=== PATIENT | female | born 1975 | race Caucasian/White ===

== ENCOUNTER → 2019-04-23 | Outpatient (CLI) | payer MEDICARE, MEDICAID ==
[~2019-04-23] MED LIST: ALPR.25T PO; ALPR0.5T7 PO; CHOL500044 PO; CIPR500T4 PO; CYAN500T62 PO; CYCL10TA9 PO; DIAZ5TAB3 PO; ETOD400T PO; HYDR-2890 PO; HYDR-34 PO; HYDR-3583 PO; HYDR-3820 PO; METH750T3 PO; METR-145 PO; NAPR-243 PO; OXYC-272 PO; PRAV10TA23 PO; SULF1TAB35 PO
--- NOTE | 2019-04-23 15:10 | Diagnostic Imaging Report ---
PROCEDURE: MR imaging cervical spine without contrast. TECHNIQUE: Multiplanar, multisequence MR imaging of the cervical spine was performed without contrast. INDICATION: Increasing cervical spine pain, radiculopathy. History of prior cervical spine fusion in 2013. CORRELATION STUDY: 10/07/2014. FINDINGS: Postoperative changes of anterior cervical decompression and fusion at C6-C7 level with some artifact present. The alignment appears to be an anatomic at the areas fused. Nonfused segments demonstrate straightening but otherwise unremarkable. Overall vertebral body heights are maintained and unremarkable. The cervicocranial junction and odontoid are unremarkable. The cervical spinal cord is unremarkable. C2-C3 level is unremarkable. C3-C4 level with very mild broad-based disc bulge without significant stenosis. AP dimension of the spinal canal of approximately 9 mm. C4-C5 and C5-C6 levels appearing unremarkable. C6-C7 level, level fused, demonstrates what appears to be a rather prominent asymmetric disc and/or osteophyte formation with resultant left foraminal narrowing. Right foramen appears less severely narrowed. Slight flattening of the ventral thecal sac without significant canal stenosis. C7-T1 level is unremarkable. Examination is compromised by patient motion artifact. IMPRESSION: 1. Postoperative changes of anterior cervical decompression and fusion at C6-C7 level. There does appear to be prominent disc and/or osteophyte formation resulting in bilateral foraminal narrowing. 2. Otherwise, no findings to suggest significant canal or foraminal stenosis. Dictated by: Dictated on workstation # [id number]
--- NOTE | 2019-04-23 15:35 | Diagnostic Imaging Report ---
PROCEDURE: MRI lumbar spine. TECHNIQUE: Multiplanar, multisequence MRI of the lumbar spine was performed without contrast. INDICATION: Worsened low back pain. COMPARISON: Study compared with exam of 05/30/2015. FINDINGS: Lumbar statures are stable and unremarkable. There are degenerative changes, greatest at the L3-L4 level where there is disc space narrowing, disc desiccation, disc bulge, and endplate osteophytes. The osteophyte disc material results in a moderate degree of biforaminal stenosis, stable from prior. There is a moderate degree of right-sided foraminal stenosis at the L5-S1 level. The remaining neuroforamen are widely patent. There is no substantial canal stenosis. Marrow signal intensity is unremarkable. No acute osseous pathology. The alignment is normal. IMPRESSION: Bulging disc at L3-L4 with biforaminal stenosis and right-sided L5-S1 foraminal stenoses, unchanged. No substantial canal narrowing. Normal alignment. No acute bony pathology. No change from previous. Dictated by: Dictated on workstation # [id number]
== END ==
LOC: RAD 13:30
PROVIDERS: ATTEND Family Medicine
DX: M51.16 Intervertebral disc disorders with radiculopathy, lumbar region (principal); M48.061 Spinal stenosis, lumbar region without neurogenic claudication; M50.10 Cervical disc disorder with radiculopathy, unspecified cervical region; Z98.1 Arthrodesis status
CPT/HCPCS: 72141; 72148

== ENCOUNTER 2020-07-29 19:54 | Emergency (ER) | payer MEDICARE, MEDICAID ==
[~2020-07-29] VITALS: Ht 165 cm; Wt 93.0 kg
[~2020-07-29 19:54] MED LIST changes: +ACHYD1T PO; -CIPR500T4 PO; +CIPR500T5 PO; -CYAN500T62 PO; +CYAN500T8 PO; -HYDR-3820 PO; +METH-732 PO; -METH750T3 PO
--- NOTE | 2020-07-29 20:28 | ED Abdominal Pain ---
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 REPORTS DID HAVE NAUSEA ET VOMITING ONSET W/ PAIN. STATES HAS HAD SIMILAR SYMPTOMS OVER THE PAST X2 MOS, WAS EVALUATED AT [facility] ET TOLD ELEVATED CHOLESTEROL. NO OTHER C/O VOICED Sepsis Screen: No Definite Risk Source of Information: Patient Exam Limitations: No Limitations History of Present Illness Date Seen by Provider: Jul 29, 2020 Time Seen by Provider: 20:11 Initial Comments This is a 45-year-old female who presents to the ER with complaint of mid epigastric pain that started approximately 15-30 minutes prior to arrival. States she had just completed dinner when the pain began and was accompanied by nausea and vomiting with severe pain. She's had similar symptoms in the past with the most recent episode 3 days ago. She was evaluated at [facility] and told nothing was wrong with her, except elevated cholesterol. States she was told to go to the ER to rule out cardiac etiology if her symptoms returned. Allergies and Home Medications Allergies Coded Allergies: No Known Drug Allergies (Unverified , 10/09/15) Home Medications Alprazolam 0.5 Mg Tablet, 0.5 MG PO TID PRN for ANXIETY, (Reported) Cholecalciferol (Vitamin D3) 5,000 Unit Tablet, 5,000 UNIT PO DAILY, (Reported) Cyanocobalamin (Vitamin B-12) 500 Mcg Tablet, 500 MCG PO BID, (Reported) Etodolac 400 Mg Tablet, 400 MG PO BID PRN for PAIN, (Reported) Hydrocodone Bit/Acetaminophen 1 Each Tablet, 1 EACH PO TID PRN for PAIN Prescribed by: EDWARD BONILLA on 10/13/15 1047 Methocarbamol 750 Mg Tablet, 750 MG PO TID, (Reported) Pantoprazole Sodium 20 Mg Tablet.dr, 20 MG PO DAILY Prescribed by: FEDERICO OROZCO on 07/29/202216 Sucralfate 1 Gm Tablet, 1 GM PO AC Prescribed by: FEDERICO OROZCO on 07/29/202217 Patient Home Medication List Home Medication List Reviewed: Yes Review of Systems Review of Systems Constitutional: see HPI EENTM: No Symptoms Reported Respiratory: No Symptoms Reported Cardiovascular: See HPI Gastrointestinal: See HPI Genitourinary: No Symptoms Reported Musculoskeletal: no symptoms reported Skin: no symptoms reported Psychiatric/Neurological: No Symptoms Reported Endocrine: No Symptoms Reported Hematologic/Lymphatic: No Symptoms Reported Past Mhlulky-Lswfla-Kpeevi Hx Patient Social History Alcohol Use: Rarely Uses Smoking Status: Former Smoker Former Smoker, Quit: Mar 16, 2020 Recent Infectious Disease Expo: No Immunizations Up To Date Date of Pneumonia Vaccine: Mar 16, 2012 Date of Influenza Vaccine: Mar 16, 2012 Past Medical History Orthopedic Reproductive Disorders: No Female Reproductive Disorders: Ovarian Cyst HIV/AIDS: No Chronic Diarrhea, Hepatitis, Gall Bladder Disease Degenerate Disk Disease, Arthritis, Fibromyalgia, Chronic Back Pain Loss of Vision: Denies Hearing Impairment: Denies Anxiety Adverse Reaction/Blood Tranf: No Family Medical History No Pertinent Family Hx Physical Exam Vital Signs Vital Signs - First Documented 07/29/20 19:59 Temp 34.7 Pulse 67 Resp 18 B/P (MAP) 131/88 (102) Pulse Ox 100 O2 Delivery Room Air Capillary Refill : Less Than 3 Seconds Height/Weight/BMI Height: 5'5.00" Weight: 213lbs. 3.0oz. 96.448448kg; 34.00 BMI Method:Stated General Appearance: WD/WN HEENT: PERRL/EOMI, normal ENT inspection, TMs normal, pharynx normal Neck: full range of motion, supple, normal inspection Respiratory: chest non-tender, lungs clear, normal breath sounds, no respiratory distress, no accessory muscle use Cardiovascular: regular rate, rhythm, no murmur Gastrointestinal: normal bowel sounds, soft; No distended; tenderness (epigastric ) Extremities: normal range of motion, non-tender, normal inspection Back: normal inspection, no CVA tenderness, no vertebral tenderness Neurologic/Psychiatric: no motor/sensory deficits, alert, normal mood/affect, oriented x 3 Skin: normal color, warm/dry Progress/Results/Core Measures Results/Orders Lab Results Laboratory Tests Test 07/29/20 20:16 07/29/20 20:31 Range/Units White Blood Count 6.7 4.3-11.0 10^3/uL Red Blood Count 3.93 3.80-5.11 10^6/uL Hemoglobin 12.8 11.5-16.0 g/dL Hematocrit 39 35-52 % Mean Corpuscular Volume 100 H 80-99 fL Mean Corpuscular Hemoglobin 33 25-34 pg Mean Corpuscular Hemoglobin Concent 33 32-36 g/dL Red Cell Distribution Width 12.8 10.0-14.5 % Platelet Count 234 130-400 10^3/uL Mean Platelet Volume 10.0 9.0-12.2 fL Immature Granulocyte % (Auto) 0 % Neutrophils (%) (Auto) 54 42-75 % Lymphocytes (%) (Auto) 36 12-44 % Monocytes (%) (Auto) 7 0-12 % Eosinophils (%) (Auto) 2 0-10 % Basophils (%) (Auto) 1 0-10 % Neutrophils # (Auto) 3.7 1.8-7.8 10^3/uL Lymphocytes # (Auto) 2.4 1.0-4.0 10^3/uL Monocytes # (Auto) 0.5 0.0-1.0 10^3/uL Eosinophils # (Auto) 0.1 0.0-0.3 10^3/uL Basophils # (Auto) 0.0 0.0-0.1 10^3/uL Immature Granulocyte # (Auto) 0.0 0.0-0.1 10^3/uL Sodium Level 140 135-145 MMOL/L Potassium Level 3.9 3.6-5.0 MMOL/L Chloride Level 104 98-107 MMOL/L Carbon Dioxide Level 24 21-32 MMOL/L Anion Gap 12 5-14 MMOL/L Blood Urea Nitrogen 17 7-18 MG/DL Creatinine 1.10 0.60-1.30 MG/DL Estimat Glomerular Filtration Rate 53 BUN/Creatinine Ratio 15 Glucose Level 101 70-105 MG/DL Calcium Level 9.1 8.5-10.1 MG/DL Corrected Calcium 8.8 8.5-10.1 MG/DL Total Bilirubin 0.3 0.1-1.0 MG/DL Aspartate Amino Transf (AST/SGOT) 16 5-34 U/L Alanine Aminotransferase (ALT/SGPT) 17 0-55 U/L Alkaline Phosphatase 62 40-136 U/L Troponin I < 0.028 <0.028 NG/ML Total Protein 7.7 6.4-8.2 GM/DL Albumin 4.4 3.2-4.5 GM/DL Lipase 16 8-78 U/L Serum Test, Qualitative NEGATIVE NEGATIVE Urine Color YELLOW Urine Clarity CLEAR Urine pH 5.0 5-9 Urine Specific Waterflow >=1.030 1.016-1.022 Urine Protein NEGATIVE NEGATIVE Urine Glucose (UA) NEGATIVE NEGATIVE Urine Ketones TRACE H NEGATIVE Urine Nitrite NEGATIVE NEGATIVE Urine Bilirubin NEGATIVE NEGATIVE Urine Urobilinogen 0.2 < = 1.0 MG/DL Urine Leukocyte Esterase NEGATIVE NEGATIVE Urine RBC (Auto) NEGATIVE NEGATIVE Urine RBC NONE /HPF Urine WBC 0-2 /HPF Urine Squamous Epithelial Cells 5-10 /HPF Urine Crystals NONE /LPF Urine Bacteria TRACE /HPF Urine Casts NONE /LPF Urine Mucus MODERATE H /LPF Urine Culture Indicated NO My Orders Orders - FEDERICO OROZCO APRN Ua Culture If Indicated (07/29/20 19:59) Cbc With Automated Diff (07/29/20 20:25) Comprehensive Metabolic Panel (07/29/20 20:25) Lipase (07/29/20 20:25) Ekg Tracing (07/29/20 20:25) Hcg,Qualitative Serum (07/29/20 20:25) Troponin I (07/29/20 20:25) Ct Abdomen/Pelvis W (07/29/20 20:25) Chest 1 View, Ap/Pa Only (07/29/20 20:26) Pantoprazole Injection (Protonix Injecti (07/29/20 20:30) Ketorolac Injection (Toradol Injection) (07/29/20 20:30) Ondansetron Injection (Zofran Injectio (07/29/20 20:30) Ketorolac Injection (Toradol Injection) (07/29/20 20:30) Lidocaine 2% Viscous 15 Ml (Xylocaine Vi (07/29/20 21:45) Antacid Suspension (Mylanta Suspension (07/29/20 21:45) Fentanyl Injection (Sublimaze Injection (07/29/20 22:45) Medications Given in ED Vital Signs/I&O 07/29/20 07/29/20 19:59 23:05 Temp 34.7 Pulse 67 62 Resp 18 18 B/P (MAP) 131/88 (102) 129/72 Pulse Ox 100 98 O2 Delivery Room Air Room Air Blood Pressure Mean: 102 Progress Progress Note : Progress Note Pt. examined and in no acute distress. Based on symptoms, initiated basic labs, lipase, and cardiac markers with CXR to r/o cardiac etiology. Orders placed for Pantoprazole 40mg IVP, Toradol 15mg IVP, and Zofran 4mg IVP. Labs reviewed and are unremarkable. CT abd/pelvis shows NAD. Reported improvement of symptoms, however requested something to help with residual pain. Orders placed for GI cocktail. Reviewed discharge plan and she is agreeable with plan. Initial ECG Impression Date: Jul 29, 2020 Initial ECG Impression Time: 20:38 Initial ECG Rate: 63 Initial ECG Rhythm: Normal Sinus Initial ECG Intervals: Normal Initial ECG Impression: Normal Diagnostic Imaging Diagonstic Imaging: Xray Plain Films/CT/US/NM/MRI: chest Comments NAME: PHILIP WOODARD [facility] REC#: [id number] PT STATUS: REG ER : 1975 PHYSICIAN: FEDERICO OROZCO APRN ADMIT DATE: 07/29/20/ER Signed Date of Exam:07/29/20 CHEST 1 VIEW, AP/PA ONLY Clinical indication: Patient complains of abdominal pain, onset 15-30 minutes prior to arrival after eating. Patient did have nausea and vomiting with onset of pain. Patient has similar pain two months ago and was evaluated at outside hospital and was told the patient had elevated cholesterol. Exam: Portable chest x-ray upright view. Comparisons: None. Findings: Lungs/pleura: Lungs are clear. There is no pneumothorax. There is no pleural effusion. Mediastinum: Unremarkable. Pulmonary vasculature: Unremarkable. Heart: Unremarkable. Bones/extrathoracic soft tissue: Unremarkable. Impression: There is no radiographic evidence of acute cardiopulmonary process. Dictated by: Dictated on workstation # [id number] Dict: 07/29/202058 Trans: 07/29/202225 [facility] [id number] Interpreted by: KELVIN RUBY MD Electronically signed by: KELVIN RUBY MD 07/29/202225 Reviewed: Reviewed by Me Diagonstic Imaging: CT Plain Films/CT/US/NM/MRI: abdomen, pelvis Comments NAME: PHILIP WOODARD [facility] REC#: [id number] PT STATUS: REG ER : 1975 PHYSICIAN: FEDERICO OROZCO APRN ADMIT DATE: 07/29/20/ER Signed Date of Exam:07/29/20 CT ABDOMEN/PELVIS W CLINICAL INDICATION: Patient with midepigastric pain with onset of 15 to 30 minutes prior to arrival after eating. Patient has surgical history of gallbladder removal and ectopic . EXAM: Axial CT scan of the abdomen and pelvis performed with 100 mL of Omnipaque 350 IV contrast. Sagittal and coronal reformatted images are created. Auto Exposure Controls were utilized during the CT exam to meet ALARA standards for radiation dose reduction. COMPARISON: CT scan of the abdomen and pelvis with contrast dated 03/08/2016. FINDINGS: There is minimal atelectasis involving the posterior left lung base. Otherwise, lungs are clear. There are small spurs involving the lower lumbar spine. There is sclerosis of the sacroiliac joints, bilaterally. There are small spurs involving both hips. Gallbladder is surgically resected as noted on the prior study as well. The liver, spleen and pancreas are unremarkable. Stable 2.2 cm x 1.6 cm low-density lesion involving the right adrenal gland with Hounsfield units of 13. This is suspected to represent adenoma. Otherwise adrenal glands are unremarkable. Both kidneys are unremarkable with no hydronephrosis, mass or stone. The bladder is predominantly decompressed with no gross abnormality visualized. The uterus and bilateral adnexal structures are unremarkable. There is no intra-abdominal free air or free fluid. There is no acute abdominal or pelvic lymphadenopathy. The appendix is unremarkable. There is no intestinal obstruction. Stomach has similar appearance to the prior study. There is thickening of the antrum which may be related to contraction. Extra-abdominal and extra-pelvis soft tissue structures are unremarkable. IMPRESSION: 1: There is no CT evidence of acute abdominal or pelvic process. 2: Stable right adrenal gland low-density lesion suspected to represent a benign adrenal adenoma. 3: Cholecystectomy changes again seen. Dictated by: Dictated on workstation # [id number] Dict: 07/29/[id number] Trans: 07/29/202231 [facility] [id number] Interpreted by: KELVIN RUBY MD Electronically signed by: KELVIN RUBY MD 07/29/202231 Departure Impression Primary Impression: Gastritis Disposition: 01 HOME, SELF-CARE Condition: Improved Departure-Patient Inst. Decision time for Depature: 22:12 Referrals: NIC DIAZ MD (PCP/Family) Primary Care Physician Patient Instructions: Gastritis Add. Discharge Instructions: Plan: 1. Take Carafate one hour before meals and medications. Take on empty stomach. 2. Take Protonix 20mg daily as directed before your heaviest meal. 3. Follow up with your primary care provider as you may need to be referred for EGD for persistent symptoms. 4. Avoid spicy, acidic foods. Avoid foods that trigger symptoms. 5. Return for any new, worsening, or concerning symptoms. All discharge instructions reviewed with patient and/or family. Voiced understanding. Scripts Sucralfate (Sucralfate) 1 Gm Tablet 1 GM PO AC for 10 Days, #30 TAB 0 Refills Prov: FEDERICO OROZCO RENEWALS REPRESENTATIVE 07/29/20 Pantoprazole Sodium (Pantoprazole Sodium) 20 Mg Tablet.dr 20 MG PO DAILY for 30 Days, #30 TAB 0 Refills Prov: FEDERICO OROZCO RENEWALS REPRESENTATIVE 07/29/20 FEDERICO OROZCO RENEWALS REPRESENTATIVE Jul 29, 2020 20:28
[2020-07-29] MEDS ORDERED: PANTOPRAZOLE 40 MG (PROTONIX) VIAL IV ONE (20:30)
[2020-07-29] MEDS ORDERED: KETOROLAC 30 MG/ML VIAL ONE (20:30)
[2020-07-29] MEDS ORDERED: KETOROLAC 15 MG/ML VIAL IVP ONE (20:30)
[2020-07-29] MEDS ORDERED: ONDANSETRON 4 MG/2 ML (SDV) Z0FRAN IVP ONE (20:30)
[2020-07-29 20:36] LABS: BASOPHILS % (AUTO) 1 % (0-10); EOSINOPHILS # (AUTO) 0.1 10^3/uL (0.0-0.3); EOSINOPHILS % (AUTO) 2 % (0-10); HEMATOCRIT 39 % (35-52); HEMOGLOBIN 12.8 g/dL (11.5-16.0); LYMPHOCYTES # (AUTO) 2.4 10^3/uL (1.0-4.0); LYMPHOCYTES % (AUTO) 36 % (12-44); MEAN CORPUSCULAR HEMOGLOBIN 33 pg (25-34); MEAN CORPUSCULAR HGB CONC 33 g/dL (32-36); MEAN CORPUSCULAR VOLUME 100 fL (80-99); MONOCYTES # (AUTO) 0.5 10^3/uL (0.0-1.0); MONOCYTES % (AUTO) 7 % (0-12); NEUTROPHILS # (AUTO) 3.7 10^3/uL (1.8-7.8); NEUTROPHILS % (AUTO) 54 % (42-75); PLATELET COUNT 234 10^3/uL (130-400); WHITE BLOOD COUNT 6.7 10^3/uL (4.3-11.0)
[2020-07-29 20:38] LABS: BILIRUBIN,URINE NEGATIVE (NEGATIVE); CLARITY,URINE CLEAR; COLOR,URINE YELLOW; GLUCOSE, URINE (UA) NEGATIVE (NEGATIVE); KETONES,URINE TRACE (NEGATIVE); LEUKOCYTE ESTERASE ,URINE NEGATIVE (NEGATIVE); NITRITE,URINE NEGATIVE (NEGATIVE); PROTEIN,URINE NEGATIVE (NEGATIVE)
[2020-07-29 20:44] LABS: ALBUMIN 4.4 GM/DL (3.2-4.5); CHLORIDE 104 MMOL/L (98-107); POTASSIUM 3.9 MMOL/L (3.6-5.0); SODIUM 140 MMOL/L (135-145)
[2020-07-29 20:45] LABS: CALCIUM 9.1 MG/DL (8.5-10.1)
[2020-07-29 20:46] LABS: GLUCOSE 101 MG/DL (70-105); TOTAL PROTEIN 7.7 GM/DL (6.4-8.2)
[2020-07-29 20:47] LABS: CARBON DIOXIDE 24 MMOL/L (21-32)
[2020-07-29 20:48] LABS: BILIRUBIN,TOTAL 0.3 MG/DL (0.1-1.0)
[2020-07-29 20:49] LABS: BACTERIA,URINE TRACE /HPF; WBC,URINE 0-2 /HPF
[2020-07-29 20:50] LABS: ALKALINE PHOSPHATASE 62 U/L (40-136); GFR ESTIMATED 53
[2020-07-29 20:51] LABS: BUN/CREATININE RATIO 15
[2020-07-29 20:53] LABS: ALANINE AMINOTRANSFERASE 17 U/L (0-55); LIPASE 16 U/L (8-78)
[2020-07-29] MEDS ORDERED: IOHEXOL 350 MG/ML 100 ML (OMNIPAQUE 350) VIAL IV ONE (21:00)
[2020-07-29] MEDS ORDERED: CATHETER FLUSH 10 ML SYR IV PRN (21:00)
[2020-07-29] MEDS ORDERED: NS 100 ML (IVPB) BAG IV ONE (21:00)
[2020-07-29] MEDS ORDERED: HOLD METFORMIN - RECEIVED CONTRAST 20 ML VIAL IV SCH (21:00)
--- NOTE | 2020-07-29 21:10 | Diagnostic Imaging Report ---
Clinical indication: Patient complains of abdominal pain, onset 15-30 minutes prior to arrival after eating. Patient did have nausea and vomiting with onset of pain. Patient has similar pain two months ago and was evaluated at outside hospital and was told the patient had elevated cholesterol. Exam: Portable chest x-ray upright view. Comparisons: None. Findings: Lungs/pleura: Lungs are clear. There is no pneumothorax. There is no pleural effusion. Mediastinum: Unremarkable. Pulmonary vasculature: Unremarkable. Heart: Unremarkable. Bones/extrathoracic soft tissue: Unremarkable. Impression: There is no radiographic evidence of acute cardiopulmonary process. Dictated by: Dictated on workstation # [id number]
[2020-07-29] MEDS ORDERED: LIDOCAINE 2% VISCOUS 15 ML UDC PO ONE (21:45)
[2020-07-29] MEDS ORDERED: ANTACID SUSP 30 ML UDC (MYLANTA) PO ONE (21:45)
[2020-07-29] MEDS ORDERED: PANT20TA18 PO (22:17)
[2020-07-29] MEDS ORDERED: SUCR1TAB PO (22:18)
--- NOTE | 2020-07-29 22:29 | Diagnostic Imaging Report ---
CLINICAL INDICATION: Patient with midepigastric pain with onset of 15 to 30 minutes prior to arrival after eating. Patient has surgical history of gallbladder removal and ectopic . EXAM: Axial CT scan of the abdomen and pelvis performed with 100 mL of Omnipaque 350 IV contrast. Sagittal and coronal reformatted images are created. Auto Exposure Controls were utilized during the CT exam to meet ALARA standards for radiation dose reduction. COMPARISON: CT scan of the abdomen and pelvis with contrast dated 03/08/2016. FINDINGS: There is minimal atelectasis involving the posterior left lung base. Otherwise, lungs are clear. There are small spurs involving the lower lumbar spine. There is sclerosis of the sacroiliac joints, bilaterally. There are small spurs involving both hips. Gallbladder is surgically resected as noted on the prior study as well. The liver, spleen and pancreas are unremarkable. Stable 2.2 cm x 1.6 cm low-density lesion involving the right adrenal gland with Hounsfield units of 13. This is suspected to represent adenoma. Otherwise adrenal glands are unremarkable. Both kidneys are unremarkable with no hydronephrosis, mass or stone. The bladder is predominantly decompressed with no gross abnormality visualized. The uterus and bilateral adnexal structures are unremarkable. There is no intra-abdominal free air or free fluid. There is no acute abdominal or pelvic lymphadenopathy. The appendix is unremarkable. There is no intestinal obstruction. Stomach has similar appearance to the prior study. There is thickening of the antrum which may be related to contraction. Extra-abdominal and extra-pelvis soft tissue structures are unremarkable. IMPRESSION: 1: There is no CT evidence of acute abdominal or pelvic process. 2: Stable right adrenal gland low-density lesion suspected to represent a benign adrenal adenoma. 3: Cholecystectomy changes again seen. Dictated by: Dictated on workstation # [id number]
[2020-07-29] MEDS ORDERED: fentaNYL INJECTION 100 MCG/2 ML AMP IVP ONE (22:45)
[2020-07-29 23:05] VITALS: BP 129/72
== END 2020-07-29 23:05 | disposition home or self-care (01) ==
LOC: EDUNIT# 19:54 → ER 19:56
DX: K29.70 Gastritis, unspecified, without bleeding (principal); F41.9 Anxiety disorder, unspecified; G89.29 Other chronic pain; M54.9 Dorsalgia, unspecified; Z87.891 Personal history of nicotine dependence; Z79.891 Long term (current) use of opiate analgesic
CPT/HCPCS: 36415; 71045; 74177; 80053; 81000; 83690; 84484; 84703; 85025; 93005; 96374; 96375

== ENCOUNTER 2020-08-25 05:28 | Outpatient (RCR) | payer MEDICARE, MEDICAID ==
[~2020-08-25] VITALS: Ht 165.1 cm; Wt 90.8 kg
[~2020-08-25 05:28] MED LIST changes: +AMLO-251 PO; +ATOR40TA70 PO; +CHOL500049 PO; +PANT20TA18 PO; +SUCR1TAB PO; +[UNRECOGNIZED DRUG - CODE] PO
[2020-08-29] MEDS ORDERED: PANT20TA18 PO (13:26)
[2020-08-29] MEDS ORDERED: PANT40TA2 PO (13:27)
== END 2020-08-25 09:34 | disposition home or self-care (01) ==
LOC: PREOP 05:28
PROVIDERS: ATTEND Surgery
DX: Z01.812 Encounter for preprocedural laboratory examination (principal); R10.13 Epigastric pain; R11.2 Nausea with vomiting, unspecified; Z20.822 Contact with and (suspected) exposure to COVID-19
CPT/HCPCS: 87635

== ENCOUNTER 2020-08-29 11:11 | Day surgery (SDC) | payer MEDICARE, MEDICAID ==
[~2020-08-29] VITALS: Ht 165 cm; Wt 91.0 kg
[2020-08-29] VITALS (7 sets, daily range): BP systolic 82–116; BP diastolic 46–80
[~2020-08-29 11:11] MED LIST changes: +LACTATED RINGERS 1,000 ML IV ONE
[2020-08-29] MEDS ORDERED: LACTATED RINGERS 1,000 ML IV STA (11:12)
[2020-08-29] MEDS ORDERED: HURRICAINE EXT TUBE (BENZOCAINE) XX PRN (11:15)
--- NOTE | 2020-08-29 12:00 | Progress Note-Pre Operative ---
Pre-Operative Progress Note H&P Reviewed The H&P was reviewed, patient examined and no changes noted. Date Seen by Provider: Aug 29, 2020 Time Seen by Provider: 12:00 Date H&P Reviewed: Aug 29, 2020 Time H&P Reviewed: 12:00 Pre-Operative Diagnosis: epigastric abdominal pain, n/v EDWARD BONILLA DO Aug 29, 2020 12:00
[2020-08-29] MEDS ORDERED: PROPOFOL INJECTION 50 ML IV ONE (12:11)
[2020-08-29] MEDS ORDERED: MIDAZOLAM 2 MG/2 ML (VERSED) VIAL ONE (12:11)
[2020-08-29] MEDS ORDERED: HURRICAINE EXT TUBE (BENZOCAINE) ONE (13:03)
--- NOTE | 2020-08-29 13:23 | Anesthesia-General Post-Op ---
MAC Patient Condition Mental Status/LOC: Same as Preop Cardiovascular: Satisfactory Nausea/Vomiting: Absent Respiratory: Satisfactory Pain: Controlled Complications: Absent Post Op Complications Complications None Follow Up Care/Instructions Patient Instructions None needed. Anesthesiology Discharge Order Discharge Order Patient is doing well, no complaints, stable vital signs, no apparent adverse anesthesia problems. No complications reported per nursing. KALIN LAURENT CRNA Aug 29, 2020 13:23
--- NOTE | 2020-08-29 13:25 | Progress Note-Post Operative ---
Post-Operative Progess Note Surgeon (s)/Lasting Room Supervisor (s) Surgeon EDWARD BONILLA DO Lasting Room Supervisor: na Pre-Operative Diagnosis epigastric abdominal pain, n/v Post-Operative Diagnosis slight gastritis Procedure & Operative Findings Date of Procedure 08/29/20 Procedure Performed/Findings EGD c biopsies Biopsy of antrum x 1 Biopsy of stomach antrum x 1 Biopsy of GE junction x 1 Anesthesia Type per master hearth technician Estimated Blood Loss Estimated blood loss (mL): scant Specimens/Packing Specimens Removed antrum, body, ge EDWARD BONILLA DO Aug 29, 2020 13:25
[2020-08-29] MEDS ORDERED: PANT20TA18 PO (13:26)
[2020-08-29] MEDS ORDERED: PANT40TA2 PO (13:27)
--- NOTE | 2020-08-29 13:28 | Discharge Inst-Simple/Standard ---
Discharge Inst-Standard Discharge Medications New, Converted or Re-Newed RX: RX on Chart Patient Instructions/Follow Up Plan of Care/Instructions/FU: 2-3 weeks Willie Activity as Tolerated: Yes Discharge Diet: Regular Diet EDWARD BONILLA DO Aug 29, 2020 13:28
--- NOTE | 2020-08-29 14:14 | OPERATIVE REPORT ---
DATE OF SERVICE: 08/29/2020 PREOPERATIVE DIAGNOSES: Epigastric abdominal pain, nausea, vomiting. POSTOPERATIVE DIAGNOSIS: Slight gastritis. PROCEDURE: EGD with biopsies. SURGEON: Edward Tapia DO ANESTHESIA: Per MATERIAL STRESS TESTER. ESTIMATED BLOOD LOSS: Scant. COMPLICATIONS: None. SPECIMENS: Antrum, body, GE junction. INDICATIONS: The patient is a 45-year-old female with nausea, vomiting, epigastric abdominal pain. She understands risks and benefits of procedure and wished to proceed with procedure. Consent was signed in the chart. DESCRIPTION OF PROCEDURE: The patient was taken to the endoscopy suite, placed in left lateral recumbent position. Timeout was performed. Scope was inserted in mouth, down the esophagus, stomach and into the duodenum without difficulty. No polyps, masses or ulcerations within the duodenum. Scope was slowly retracted back into the stomach where it was further insufflated. Slight erythematous changes throughout the stomach consistent with some slight gastritis. Biopsy of the antrum and body were obtained. Scope was retroflexed noting no other pathology. Scope was returned to its normal position, slowly withdrawn to distal esophagus. Biopsy of the GE junction was obtained. No polyps, masses or ulcerations. Scope was slowly retracted back until completely removed. The patient tolerated procedure well without any complications. She was taken to recovery room in stable condition. RECOMMENDATIONS: Protonix switched from 20 mg to 40 mg daily. We will continue on Carafate. We will await biopsy results for further recommendations. Job ID: [id number] DocumentID: [id number] Dictated Date: 08/29/2020 13:30:14 Knowledge Management Advisor Date: 08/29/2020 14:13:42 Dictated By: EDWARD TAPIA DO
== END 2020-08-29 14:30 | disposition home or self-care (01) ==
LOC: ENDO 11:11
PROVIDERS: ATTEND Surgery
DX: K29.70 Gastritis, unspecified, without bleeding (principal); K21.00 Gastro-esophageal reflux disease with esophagitis, without bleeding; I10 Essential (primary) hypertension; M19.90 Unspecified osteoarthritis, unspecified site; M79.7 Fibromyalgia; F41.9 Anxiety disorder, unspecified; Z79.899 Other long term (current) drug therapy; Z87.19 Personal history of other diseases of the digestive system; Z79.891 Long term (current) use of opiate analgesic; Z20.822 Contact with and (suspected) exposure to COVID-19; Z90.49 Acquired absence of other specified parts of digestive tract
CPT/HCPCS: 88305

== ENCOUNTER → 2020-09-26 | Outpatient (CLI) | payer MEDICARE, MEDICAID ==
[~2020-09-26] MED LIST changes: -LACTATED RINGERS 1,000 ML IV ONE; +PANT40TA2 PO
--- NOTE | 2020-09-26 13:30 | Diagnostic Imaging Report ---
INDICATION: Routine screening. COMPARISON: No prior mammograms are available for comparison. TECHNIQUE: 2D and 3D bilateral screening mammography was performed with CAD. FINDINGS: Both breasts are heterogeneously dense, limiting the sensitivity of mammography. No dominant mass or malignant appearing microcalcifications are identified. The axillae are unremarkable. IMPRESSION: No mammographic features suspicious for malignancy are identified. ACR BI-RADS Category 1: Negative. Result letter will be mailed to the patient. Note: At least 10% of breast cancer is not imaged by mammography. Dictated by: Dictated on workstation # [id number]
== END ==
LOC: RAD 08:30
PROVIDERS: ATTEND Nurse Practitioner Family
DX: Z12.31 Encounter for screening mammogram for malignant neoplasm of breast (principal)
CPT/HCPCS: 77063; 77067

== ENCOUNTER → 2020-12-20 | Outpatient (CLI) | payer MEDICARE, MEDICAID ==
[~2020-12-20] MED LIST changes: -ETOD400T PO; +ETOD400T3 PO; +GADOBUTROL 10 MMOL/10 ML (GADAVIST) VIAL IV ONE
--- NOTE | 2020-12-20 15:12 | Diagnostic Imaging Report ---
PROCEDURE: MR imaging cervical spine with and without contrast. TECHNIQUE: Multiplanar and multisequence MRI of the cervical spine was performed with and without contrast. INDICATION: Spinal stenosis. Prior cervical spine surgery. Increasing neck pain. COMPARISON: MRI cervical spine without contrast 04/23/2019. FINDINGS: Normal alignment. Vertebral body heights preserved. Normal bone marrow signal without suspicious enhancement.. Again seen is anterior fusion at C6-C7. No abnormal signal or enhancement in the cervical spinal cord. The visualized paravertebral soft tissues are unremarkable. C2-C3: No spinal canal or neural foraminal narrowing. C3-C4: Facet arthropathy results in mild right neural foraminal narrowing, similar to the prior exam. Small disc protrusion results in mild spinal canal narrowing. C4-C5: No substantial spinal canal narrowing. Mild right neural foraminal narrowing. C5-C6: Broad-based disc bulge, asymmetric to the left, has progressed since the prior exam. There is moderate spinal canal stenosis with some flattening of the cervical cord. Moderate bilateral neural foraminal narrowing. C6-C7: No spinal canal narrowing. Osteophytic ridging results in moderate left and mild right neural foraminal narrowing. C7-T1: No spinal canal narrowing. Facet arthropathy results in moderate bilateral neural foraminal narrowing, similar to the prior. IMPRESSION: 1. Stable postoperative findings from anterior fusion at C6-C7. 2. There has been progression of spondylotic changes, particularly at C5-C6 where there is now moderate spinal canal stenosis with some flattening of the cervical cord. 2. Multilevel high-grade neural foraminal narrowing as above. 3. No abnormal signal or enhancement in the cervical spinal cord. Dictated by: Dictated on workstation # [id number]
--- NOTE | 2020-12-20 17:18 | Diagnostic Imaging Report ---
EXAM: MRI THORACIC SPINE W/WO CON INDICATION: Spinal canal stenosis. COMPARISON: MRI thoracic spine without contrast 05/30/2015. CT abdomen and pelvis with IV contrast 03/08/2016. FINDINGS: Stable mild S-shaped scoliosis of the thoracic spine. No anterior or retrolisthesis. No suspicious bone marrow signal or enhancement. Mild Modic type II degenerative endplate changes in the inferior endplate of T5. Benign hemangioma in the T8 vertebral body. Small disc protrusion at T7-T8 and T10-T11 results in no substantial spinal canal stenosis. No high-grade neural foraminal narrowing. No abnormal signal or enhancement in the thoracic spinal cord. T2 hyperintense mass in the right adrenal gland measuring 2.0 x 1.6 cm has grown since the prior exam when it measured 0.8 x 0.6 cm. This is not well characterized on this nondedicated exam and may demonstrate some peripheral enhancement. No definite fat signal is seen. Visualized paravertebral soft tissues are unremarkable. IMPRESSION: 1. Stable scoliosis and mild spondylotic changes result in no high-grade neural impingement. 2. No abnormal signal or enhancement in the thoracic spinal cord. 3. Well-circumscribed T2 hyperintense mass in the right adrenal gland is incompletely characterized. No definite macroscopic fat is identified on the provided sequences. This may be a benign lesion but is indeterminate. Recommend nonemergent evaluation with multiphase contrast-enhanced dedicated CT. Dictated by: Dictated on workstation # [id number]
== END ==
LOC: RAD 08:45
PROVIDERS: ATTEND Nurse Practitioner Family
DX: M47.813 Spondylosis without myelopathy or radiculopathy, cervicothoracic region (principal); M48.03 Spinal stenosis, cervicothoracic region; D49.7 Neoplasm of unspecified behavior of endocrine glands and other parts of nervous system; M41.82 Other forms of scoliosis, cervical region; E27.9 Disorder of adrenal gland, unspecified; Z98.890 Other specified postprocedural states
CPT/HCPCS: 72156; 72157

== ENCOUNTER → 2020-12-22 | Outpatient (CLI) | payer MEDICARE, MEDICAID ==
--- NOTE | 2020-12-22 21:11 | Diagnostic Imaging Report ---
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 Pain in the lower back. EXAMINATION: Lumbar spine MRI with and without contrast, 12/22/2020. COMPARISON: 07/22/2010. FINDINGS: There is grade 1 anterolisthesis of L3 on L4 with remaining alignment preserved. Vertebral body heights maintained. Tip of the conus unremarkable in appearance and location. L1-L2: There is bilateral facet and ligamentum flavum hypertrophy. No significant bulging disc material is appreciated. The central canal appears patent. There is no significant neural foraminal stenosis. L2-L3: There is bilateral facet and ligamentum flavum hypertrophy. No significant bulging disc material is seen. There is no central stenosis. Neural foramina patent. L3-L4: There is intervertebral disc space narrowing, disc desiccation and a broad-based bulging disc. Endplate changes consistent with both Modic type II and III degenerative disease. Endplate irregularity is noted anteriorly, worsened since previous examination. The broad-based bulging disc material flattens the ventral thecal sac. There is bilateral facet hypertrophy. There is no significant central stenosis. There is of moderate bilateral neural foraminal stenosis. L4-L5: There is a broad-based bulging disc with bilateral facet and ligamentum flavum hypertrophy. Findings flatten the ventral thecal sac. There is no significant central stenosis. Moderate to severe bilateral neural foraminal stenosis is noted, left worse than right. L5-S1: There is a right paracentral broad-based bulging disc with disc desiccation. Bilateral facet and ligamentum flavum hypertrophy noted. No significant central stenosis is seen but there is mild narrowing of the right lateral recess. There is moderate to severe right and moderate left neural foraminal stenosis. The postcontrast images were repeated due to artifact. Despite repeat imaging there is persistent marked artifact on the sagittal sequences making sagittal imaging nearly nondiagnostic. On axial imaging no abnormally enhancing lesion is appreciated. There is a rounded well-circumscribed lesion left paracentrally at the L4 vertebral body, stable in appearance from previous examination, most consistent with a hemangioma. The visualized intra-abdominal structures appear unremarkable. Within the left aspect of the pelvis there is a cystic lesion which measures 3.9 cm in greatest dimension and contains a peripheral smaller cystic lesion, likely ovarian in nature, dedicated sonography recommended. IMPRESSION: 1. Multilevel diffuse degenerative findings, as described above, with limited postcontrast imaging as noted. 2. Right paracentral cystic lesion likely associated with the ovary. Dedicated sonography recommended. Dictated by: Dictated on workstation # [id number]
== END ==
LOC: RAD 16:15
PROVIDERS: ATTEND Nurse Practitioner Family
DX: C72.0 Malignant neoplasm of spinal cord (principal); M51.26 Other intervertebral disc displacement, lumbar region; M51.27 Other intervertebral disc displacement, lumbosacral region; M51.36 Other intervertebral disc degeneration, lumbar region; M51.37 Other intervertebral disc degeneration, lumbosacral region; M48.061 Spinal stenosis, lumbar region without neurogenic claudication; M48.07 Spinal stenosis, lumbosacral region; M43.16 Spondylolisthesis, lumbar region; M24.28 Disorder of ligament, vertebrae; M89.38 Hypertrophy of bone, other site
CPT/HCPCS: 72158

== ENCOUNTER → 2021-01-19 | Outpatient (CLI) | payer MEDICARE, MEDICAID ==
[~2021-01-19] MED LIST changes: +CATHETER FLUSH 10 ML SYR IV PRN; -GADOBUTROL 10 MMOL/10 ML (GADAVIST) VIAL IV ONE; +HOLD METFORMIN - RECEIVED CONTRAST 20 ML VIAL IV SCH; +IOHEXOL 350 MG/ML 100 ML (OMNIPAQUE 350) VIAL IV ONE; +NS 100 ML (IVPB) BAG IV ONE
--- NOTE | 2021-01-19 17:26 | Diagnostic Imaging Report ---
PROCEDURE: CT abdomen and pelvis with contrast. TECHNIQUE: Multiple contiguous axial images were obtained through the abdomen and pelvis after administration of intravenous contrast. Auto Exposure Controls were utilized during the CT exam to meet ALARA standards for radiation dose reduction. All CT scans use one or more of the following dose optimizing techniques: automated exposure control, MA and/or KvP adjustment based on patient size and exam type or iterative reconstruction. INDICATION: Right adrenal gland mass. COMPARISON: 07/29/2020 and 03/24/2015. FINDINGS: The visualized lung bases are clear. Cholecystectomy. The liver and spleen are unremarkable. The left adrenal gland is unremarkable. 2.1 x 1.7 cm right adrenal gland hypodense nodule is again identified. This does not appear significantly changed in size when compared to prior imaging from 2014. The pancreas is unremarkable. The kidneys are unremarkable. No aneurysmal dilatation of the abdominal aorta. No evidence of acute appendicitis. The urinary bladder is predominantly decompressed, but otherwise unremarkable. Cystic structures are noted within the bilateral ovaries. Otherwise, uterus and adnexal structures appear unremarkable. Mural thickening of the descending and sigmoid colon is noted with associated mild adjacent inflammatory stranding. No bowel obstruction or pneumatosis. No significant adenopathy, free air or free fluid within the abdomen or pelvis. No acute osseous abnormality with significant focal degenerative changes at the L3/L4 level with bilateral pars interarticularis defects of L3 noted. IMPRESSION: 1. Mural thickening of the descending and sigmoid colon with adjacent inflammatory stranding is felt to relate to underlying colitis. No evidence of bowel obstruction. 2. There is a 2.1 cm hypodense right adrenal gland nodule, not significantly changed since 2014, consistent with a benign etiology such as an adenoma. 3. Bilateral ovarian cysts. 4. Significant degenerative changes at the L3/L4 level secondary to bilateral pars interarticularis defects of L3. Dictated by: Dictated on workstation # [id number]
== END ==
LOC: RAD 15:45
PROVIDERS: ATTEND Nurse Practitioner Family
DX: E27.8 Other specified disorders of adrenal gland (principal); N83.202 Unspecified ovarian cyst, left side; N83.201 Unspecified ovarian cyst, right side; M47.816 Spondylosis without myelopathy or radiculopathy, lumbar region
CPT/HCPCS: 74177

== ENCOUNTER 2021-03-02 05:30 | Outpatient (RCR) | payer MEDICARE, MEDICAID ==
[~2021-03-02] VITALS: Ht 160 cm; Wt 81.7 kg
[~2021-03-02 05:30] MED LIST changes: +ASPI-808 PO; -CATHETER FLUSH 10 ML SYR IV PRN; -HOLD METFORMIN - RECEIVED CONTRAST 20 ML VIAL IV SCH; -IOHEXOL 350 MG/ML 100 ML (OMNIPAQUE 350) VIAL IV ONE; -NS 100 ML (IVPB) BAG IV ONE; +OMEG-160 PO; +TRAM50TA3 PO
== END 2021-03-02 12:34 | disposition home or self-care (01) ==
LOC: PREOP 05:30
PROVIDERS: ATTEND Surgery
DX: Z01.812 Encounter for preprocedural laboratory examination (principal); K21.9 Gastro-esophageal reflux disease without esophagitis; K52.9 Noninfective gastroenteritis and colitis, unspecified; Z20.822 Contact with and (suspected) exposure to COVID-19
CPT/HCPCS: 87635

== ENCOUNTER 2021-03-06 07:41 | Day surgery (SDC) | payer MEDICARE, MEDICAID ==
[~2021-03-06] VITALS: Ht 165.1 cm; Wt 93.0 kg
[2021-03-06] MEDS ORDERED: LACTATED RINGERS 1,000 ML IV ONE (07:51)
[2021-03-06] MEDS ORDERED: LACTATED RINGERS 1,000 ML IV STA (07:51)
[2021-03-06 07:55] VITALS: BP 106/56
[2021-03-06] MEDS ORDERED: MIDAZOLAM 2 MG/2 ML (VERSED) VIAL ONE (08:06)
[2021-03-06] MEDS ORDERED: proPOfol 200 MG/20 ML (DIPRIVAN) VIAL IV ONE ×2 (08:06→09:40)
[2021-03-06] MEDS ORDERED: fentaNYL INJ 100 MCG/2 ML AMP ONE (08:26)
--- NOTE | 2021-03-06 08:30 | Progress Note-Pre Operative ---
Pre-Operative Progress Note H&P Reviewed The H&P was reviewed, patient examined and no changes noted. Date Seen by Provider: Mar 06, 2021 Time Seen by Provider: 08: Date H&P Reviewed: Mar 06, 2021 Time H&P Reviewed: 08:29 Pre-Operative Diagnosis: gerd, descending colitis, epigastric abd pain EDWARD BONILLA DO Mar 06, 2021 08:30
[2021-03-06] MEDS: HURRICAINE EXT TUBE (BENZOCAINE) XX PRN (09:28)
[2021-03-06 10:00] VITALS: BP 89/54
[2021-03-06] MEDS ORDERED: PANT40TA2 PO (10:02)
--- NOTE | 2021-03-06 10:02 | Progress Note-Post Operative ---
Post-Operative Progess Note Surgeon (s)/Geophysical E Logger (s) Surgeon EDWARD BONILLA DO Geophysical E Logger: na Pre-Operative Diagnosis gerd, descending colitis, epigastric abd pain Post-Operative Diagnosis slight gastritis, colon polyp Procedure & Operative Findings Date of Procedure 03/06/21 Procedure Performed/Findings egd c biopsies, colonoscopy c hot bx polypectomy Anesthesia Type per boilermaker apprentice Estimated Blood Loss Estimated blood loss (mL): none Specimens/Packing Specimens Removed antrum, ge, descending colon polyp EDWARD BONILLA DO Mar 06, 2021 10:01
--- NOTE | 2021-03-06 10:04 | Discharge Inst-Simple/Standard ---
Discharge Inst-Standard Discharge Medications New, Converted or Re-Newed RX: Transmitted to Pharmacy Patient Instructions/Follow Up Plan of Care/Instructions/FU: 2 weeks Willie Activity as Tolerated: Yes Discharge Diet: Regular Diet EDWARD BONILLA DO Mar 06, 2021 10:04
[2021-03-06 10:05] VITALS: BP 97/55
[2021-03-06 10:10] VITALS: BP 98/57
[2021-03-06 10:30] VITALS: BP 118/67
[2021-03-06 10:38] VITALS: BP 118/67
--- NOTE | 2021-03-06 13:39 | Anesthesia-General Post-Op ---
MAC Patient Condition Mental Status/LOC: Same as Preop Cardiovascular: Satisfactory Nausea/Vomiting: Absent Respiratory: Satisfactory Pain: Controlled Complications: Absent Post Op Complications Complications None Follow Up Care/Instructions Patient Instructions None needed. Anesthesiology Discharge Order Discharge Order Patient is doing well, no complaints, stable vital signs, no apparent adverse anesthesia problems. No complications reported per nursing. CURT PHILIP CRNA Mar 06, 2021 13:38
--- NOTE | 2021-03-06 14:32 | OPERATIVE REPORT ---
DATE OF SERVICE: 03/06/2021 PREOPERATIVE DIAGNOSES: Gastroesophageal reflux disease, descending colitis, and epigastric abdominal pain. POSTOPERATIVE DIAGNOSES: Slight gastritis, colon polyp of descending colon. PROCEDURES PERFORMED: EGD with biopsies, colonoscopy with hot biopsy polypectomy. SURGEON: Edward Tapia DO. ANESTHESIA: Per MAMMAL CONTROL AGENT. ESTIMATED BLOOD LOSS: None. COMPLICATIONS: None. INDICATIONS FOR PROCEDURE: The patient is a 46-year-old female with GERD and descending colitis recently and epigastric abdominal pain. She understands the risks and benefits of the procedure and wishes to proceed. Consent was signed in the chart. DESCRIPTION OF PROCEDURE: The patient was taken to the endoscopy suite and placed in a left lateral recumbent position. Timeout was performed. Scope was inserted in the mouth, down the esophagus, stomach and into the duodenum without difficulty. No polyps, masses or ulcerations within the duodenum. Scope was slowly retracted back into the stomach, where it was further insufflated. Slight gastritis appearance was present. Biopsy of the antrum was obtained. Scope was retroflexed noting no other pathology. Scope was returned to its normal position, slowly withdrawn to distal esophagus. No polyps, masses or ulcerations. Biopsy of the GE junction was obtained. Scope was slowly retracted back until completely removed. Digital rectal exam was performed. There were no palpable polyps, masses or ulcerations. Scope was inserted in the rectum and advanced all the way to the cecum with minimal difficulty. Prep was adequate. Scope was then slowly retracted back. There were no polyps, masses or ulcerations within the cecum, ascending and transverse colon. In the descending colon, a small polyp was present, which hot biopsy polypectomy was performed. Scope was then continuously retracted back. No polyps, masses or ulcerations within the remainder of the descending and sigmoid colon. Once in the rectum, scope was retroflexed noting no other pathology except for some internal hemorrhoids. Scope was then returned to its normal position, slowly withdrawn until completely removed. The patient tolerated the procedure well without any complications. She was taken to the recovery room in a stable condition. RECOMMENDATIONS: The patient was started on Protonix 40 mg daily. The patient will follow up in the office in two weeks to see how her symptoms are doing and follow up on pathology. CC: Mendy Camp - requested, unable to deliver Job ID: [id number] DocumentID: [id number] Dictated Date: 03/06/2021 10:07:00 [employer] Officer Date: 03/06/2021 14:32:06 Dictated By: EDWARD TAPIA DO
== END 2021-03-06 11:00 | disposition home or self-care (01) ==
LOC: ENDO 07:41
PROVIDERS: ATTEND Surgery
DX: K63.5 Polyp of colon (principal); K21.9 Gastro-esophageal reflux disease without esophagitis; K52.9 Noninfective gastroenteritis and colitis, unspecified; I10 Essential (primary) hypertension; F41.9 Anxiety disorder, unspecified; Z79.1 Long term (current) use of non-steroidal anti-inflammatories (NSAID); Z90.49 Acquired absence of other specified parts of digestive tract; Z79.899 Other long term (current) drug therapy; Z79.891 Long term (current) use of opiate analgesic

== ENCOUNTER 2021-03-27 13:52 | Emergency (ER) | payer MEDICARE, MEDICAID ==
[~2021-03-27] VITALS: Ht 162 cm; Wt 79.0 kg
[2021-03-27] MEDS ORDERED: METOCLOPRAMIDE INJ 10 MG/2 ML (REGLAN) IVP ONE (16:00)
[2021-03-27] MEDS ORDERED: NS IV 1000 ML 1,000 ML IV SCH (16:00)
[2021-03-27] MEDS ORDERED: diphenhydrAMINE 50 MG/ML INJ (BENADRYL) IV ONE (16:00)
--- NOTE | 2021-03-27 16:20 | ED General ---
General Chief Complaint: General Problems/Pain Stated Complaint: DIZZINESS,SIMON,R ARM WEAKNESS Nursing Triage Note: PT ARRIVES AMBULATORY TO ER WITH C/O NOT FEELING NORMAL AND DIZZINESS. PT STATES SHE ALMOST HAD A SYNCOPAL EPISODE YESTERDAY, BUT DID NOT FALL OR LOSE CONSCIOUSNESS. SHE HAD C5 FUSION ON 03/14, WAS ALSO GIVEN A STEROID THAT DAY. 1 WEEK PRIOR TO THAT SHE HAD AN EGD Source of Information: Patient, Family Exam Limitations: No Limitations History of Present Illness Date Seen by Provider: Mar 27, 2021 Time Seen by Provider: 15:30 Initial Comments Patient is a 46-year-old female who presents to the emergency room with a chief complaint of generalized malaise, fatigue, increasing pain to the right neck and right upper extremity. She is status post cervical spine surgery at [address] on March 14. Scheduled to follow-up with her Ortho surgeon tomorrow. States that her pain medication regimen and muscle relaxers are not working. States that she has had increasing feelings of weakness with severe pain in the right arm. Yesterday had a near syncopal episode when she was bending down to get something she stood up, felt very lightheaded and had to grab onto her 's wheelchair and thought she might faint. Denies fevers, chills. Has not taken the dressing off of her neck since her surgery. No nausea, vomiting, diarrhea. No urinary complaints. Describes the pain in her right arm as a burning sensation that travels from the right posterior shoulder to the fingertips. Complains of some lack of coordination with the fingers of her right hand. States that these were pre-existing problems before her surgery as well but they have seemed to intensify and worsen. She states she has had worsening symptoms of dizziness and feeling like she is going to lose her balance. Denies earache, sore throat or nasal congestion. All other review of systems reviewed and negative except as stated. Timing/Duration: 2-3 Days Severity: Moderate Associated Systoms: Headaches, Malaise, Nausea/Vomiting, Weakness (right upper extremity; pain. paresthesia) Allergies and Home Medications Allergies Coded Allergies: No Known Drug Allergies (Unverified , 10/09/15) Patient Home Medication List Home Medication List Reviewed: Yes Alprazolam (Alprazolam) 0.5 Mg Tablet, 0.5 MG PO TID PRN for ANXIETY, (Reported) Entered as Reported by: THADDEUS BELL on 10/09/15 1101 Amlodipine Besylate (Amlodipine Besylate) 10 Mg Tablet, 10 MG PO DAILY, (Reported) Entered as Reported by: OMAR GUADALUPE on 08/22/20 133 Aspirin (Aspirin) 325 Mg Tablet, 325 MG PO DAILY, (Reported) Entered as Reported by: OMAR GUADALUPE on 02/28/21 09 Atorvastatin Calcium (Atorvastatin Calcium) 40 Mg Tablet, 40 MG PO DAILY, (Reported) Entered as Reported by: OMAR GUADALUPE on 08/22/20 133 Cholecalciferol (Vitamin D3) (Vitamin D3) 1,250 Mcg Capsule, 10,000 UNITS PO, (Reported) Entered as Reported by: OMAR GUADALUPE on 08/22/201331 Cyanocobalamin (Vitamin B-12) (Vitamin B-12) 500 Mcg Tablet, 500 MCG PO BID, (Reported) Entered as Reported by: THADDEUS BELL on 10/09/15 110 Lamivudine (Lamivudine Hbv) 100 Mg Tablet, 100 MG PO DAILY, (Reported) Entered as Reported by: OMAR GUADALUPE on 08/22/20 133 Methocarbamol (Methocarbamol) 750 Mg Tablet, 750 MG PO TID, (Reported) Entered as Reported by: THADDEUS BELL on 10/09/15 1101 Brice-3/Dha/Epa/Fish Oil (Fish Oil 1,000 mg Softgel) 1 Each Capsule, 1 EACH PO DAILY, (Reported) Entered as Reported by: OMAR GUADALUPE on 02/28/21 09 Pantoprazole Sodium (Protonix) 40 Mg Tablet.dr, 40 MG PO DAILY Prescribed by: EDWARD BONILLA on 03/06/21 1002 Tramadol HCl (Tramadol HCl) 50 Mg Tablet, 50 MG PO, (Reported) Entered as Reported by: OMAR GUADALUPE on 02/28/21 09 Review of Systems Review of Systems Constitutional: see HPI, malaise EENTM: no symptoms reported Respiratory: no symptoms reported Cardiovascular: no symptoms reported Gastrointestinal: nausea (mild) Genitourinary: no symptoms reported : No Musculoskeletal: joint pain (right neck/right shoulder down the arm), muscle pain, neck pain Skin: no symptoms reported Psychiatric/Neurological: Anxiety, Numbness, Paresthesia, Weakness (right arm), Other (near syncope/dizziness) All Other Systems Reviewed Negative Unless Noted: Yes Past Slsbtxv-Ipnztb-Keqdnn Hx Patient Social History Tobacco Use?: No Smoking Status: Former Smoker Substance use?: No Alcohol Use?: No Immunizations Up To Date Influenza Vaccine Up-to-Date: No; Not Current First/Initial COVID19 Vaccinat: SEPTEMBER 2019 Second COVID19 Vaccination Corey: AUGUST 2020 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: [employer] Seasonal Allergies Seasonal Allergies: No Past Medical History Surgeries: Yes (ectopic rupture, cspine fusion, lipoma tumor excisio n) Orthopedic Respiratory: No Cardiac: Yes Hypertension Neurological: No Reproductive Disorders: No Female Reproductive Disorders: Ovarian Cyst HIV/AIDS: No Genitourinary: No Gastrointestinal: Yes (HEP C) Chronic Diarrhea, Hepatitis, Gall Bladder Disease Musculoskeletal: Yes Degenerate Disk Disease, Arthritis, Fibromyalgia, Chronic Back Pain 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 3.0oz. [id number]; 30.00 BMI Method:Stated General Appearance: No Apparent Distress, WD/WN Eyes: Bilateral Eye Normal Inspection, Bilateral Eye PERRL, Bilateral Eye EOMI HEENT: PERRL/EOMI, Other (nystagmus more to the left - precipitates dizziness) Neck: Other (surgical scar/incision left neck - NO surrounding cellulitis; appropriate tenderness) Respiratory: Lungs Clear, Normal Breath Sounds, No Accessory Muscle Use, No Respiratory Distress Cardiovascular: Regular Rate, Rhythm, Normal Peripheral Pulses Gastrointestinal: Non Tender, Soft, Other ((vague epigastric tenderness)) Extremity: Normal Capillary Refill, Normal Inspection, Non Tender, No Calf Tenderness, Other (decreased ROM RUE, weaker triceps than biceps. decreased licensed weigher.) Neurologic/Psychiatric: Alert, Oriented x3, No Motor/Sensory Deficits, Normal Mood/Affect, wiping cloth cutter II-XII Norm as Tested Skin: Normal Color, Warm/Dry Progress/Results/Core Measures Suspected Sepsis SIRS Temperature: Pulse: 67 Respiratory Rate: 18 Laboratory Tests 03/27/21 16:25: White Blood Count 7.8 Blood Pressure 122 /75 Mean: 91 Laboratory Tests 03/27/21 16:25: Creatinine 0.79, Platelet Count 324, Total Bilirubin 0.3 Results/Orders Lab Results Laboratory Tests Test 03/27/21 15:11 03/27/21 16:25 Range/Units Urine Color YELLOW Urine Clarity CLEAR Urine pH 6.0 5-9 Urine Specific [place] 1.010 L 1.016-1.022 Urine Protein NEGATIVE NEGATIVE Urine Glucose (UA) NEGATIVE NEGATIVE Urine Ketones NEGATIVE NEGATIVE Urine Nitrite NEGATIVE NEGATIVE Urine Bilirubin NEGATIVE NEGATIVE Urine Urobilinogen 0.2 < = 1.0 MG/DL Urine Leukocyte Esterase NEGATIVE NEGATIVE Urine RBC (Auto) NEGATIVE NEGATIVE Urine RBC 0-2 /HPF Urine WBC 0-2 /HPF Urine Squamous Epithelial Cells 0-2 /HPF Urine Crystals NONE /LPF Urine Bacteria NEGATIVE /HPF Urine Casts NONE /LPF Urine Mucus NEGATIVE /LPF Urine Culture Indicated NO White Blood Count 7.8 4.3-11.0 10^3/uL Red Blood Count 3.69 L 3.80-5.11 10^6/uL Hemoglobin 12.1 11.5-16.0 g/dL Hematocrit 37 35-52 % Mean Corpuscular Volume 99 80-99 fL Mean Corpuscular Hemoglobin 33 25-34 pg Mean Corpuscular Hemoglobin Concent 33 32-36 g/dL Red Cell Distribution Width 12.2 10.0-14.5 % Platelet Count 324 130-400 10^3/uL Mean Platelet Volume 9.1 9.0-12.2 fL Immature Granulocyte % (Auto) 0 % Neutrophils (%) (Auto) 60 42-75 % Lymphocytes (%) (Auto) 34 12-44 % Monocytes (%) (Auto) 4 0-12 % Eosinophils (%) (Auto) 2 0-10 % Basophils (%) (Auto) 1 0-10 % Neutrophils # (Auto) 4.7 1.8-7.8 10^3/uL Lymphocytes # (Auto) 2.6 1.0-4.0 10^3/uL Monocytes # (Auto) 0.3 0.0-1.0 10^3/uL Eosinophils # (Auto) 0.1 0.0-0.3 10^3/uL Basophils # (Auto) 0.0 0.0-0.1 10^3/uL Immature Granulocyte # (Auto) 0.0 0.0-0.1 10^3/uL Sodium Level 137 135-145 MMOL/L Potassium Level 4.1 3.6-5.0 MMOL/L Chloride Level 106 98-107 MMOL/L Carbon Dioxide Level 21 21-32 MMOL/L Anion Gap 10 5-14 MMOL/L Blood Urea Nitrogen 12 7-18 MG/DL Creatinine 0.79 0.60-1.30 MG/DL Estimat Glomerular Filtration Rate 78 BUN/Creatinine Ratio 15 Glucose Level 95 70-105 MG/DL Calcium Level 9.7 8.5-10.1 MG/DL Corrected Calcium 9.7 8.5-10.1 MG/DL Total Bilirubin 0.3 0.1-1.0 MG/DL Aspartate Amino Transf (AST/SGOT) 13 5-34 U/L Alanine Aminotransferase (ALT/SGPT) 13 0-55 U/L Alkaline Phosphatase 60 40-136 U/L Total Protein 7.4 6.4-8.2 GM/DL Albumin 4.0 3.2-4.5 GM/DL My Orders Orders - JODIE LEONG MD Ed Iv/Invasive Line Start (03/27/21 15:51) Cbc With Automated Diff (03/27/21 15:51) Comprehensive Metabolic Panel (03/27/21 15:51) Ua Culture If Indicated (03/27/21 15:51) Ns Iv 1000 Ml (Sodium Chloride 0.9%) (03/27/21 16:00) Metoclopramide Injection (Reglan Injecti (03/27/21 16:00) Diphenhydramine Injection (Benadryl Inje (03/27/21 16:00) Lidocaine 4% Patch (Salonpas 4% Patch) (03/28/21 09:00) Medications Given in ED Vital Signs/I&O 03/27/21 03/27/21 14:46 18:36 Temp 36.9 36.9 Pulse 67 63 Resp 18 18 B/P (MAP) 122/75 (91) 124/73 Pulse Ox 100 100 O2 Delivery Room Air Room Air Capillary Refill : Less Than 3 Seconds Blood Pressure Mean: 91 Progress Note : Progress Note Patient's labs reviewed, all within normal limits. She does have a little nystagmus to the left. TMs are clear bilaterally. No clinical or objective findings otherwise to warrant further studies from the emergency department. A lidocaine patch was placed over her right posterior shoulder. Patient is encouraged to follow-up with her Ortho surgeon as scheduled tomorrow. Given good return precautions. Verbalized understanding. All questions are sought and answered. Patient is stable for discharge. Departure Impression Primary Impression: Neuropathic pain of upper extremity Additional Impression: Dizziness Disposition: HOME, SELF-CARE Condition: Stable Departure-Patient Inst. Decision time for Depature: 18:24 Ref[facility]: [facility] [place] Primary Care Physician VERENICE ALBERT APRN (Family) Primary Care Physician Patient Instructions: Dizziness, Adult ED Add. Discharge Instructions: Drink plenty of fluids to stay well-hydrated. Make sure that you take your pain medications with food. You can apply a lidocaine patch over your right posterior shoulder every 8 hours to help alleviate pain. Please keep your follow-up with Dr. Salas tomorrow. Come back to the emergency department for any new, concerning or worsening complaints. JODIE LEONG MD Mar 27, 2021 16:20
[2021-03-27 16:47] LABS: BASOPHILS % (AUTO) 1 % (0-10); EOSINOPHILS # (AUTO) 0.1 10^3/uL (0.0-0.3); EOSINOPHILS % (AUTO) 2 % (0-10); HEMATOCRIT 37 % (35-52); HEMOGLOBIN 12.1 g/dL (11.5-16.0); LYMPHOCYTES # (AUTO) 2.6 10^3/uL (1.0-4.0); LYMPHOCYTES % (AUTO) 34 % (12-44); MEAN CORPUSCULAR HEMOGLOBIN 33 pg (25-34); MEAN CORPUSCULAR HGB CONC 33 g/dL (32-36); MEAN CORPUSCULAR VOLUME 99 fL (80-99); MEAN PLATELET VOLUME 9.1 fL (9.0-12.2); MONOCYTES # (AUTO) 0.3 10^3/uL (0.0-1.0); MONOCYTES % (AUTO) 4 % (0-12); NEUTROPHILS # (AUTO) 4.7 10^3/uL (1.8-7.8); NEUTROPHILS % (AUTO) 60 % (42-75); PLATELET COUNT 324 10^3/uL (130-400); WHITE BLOOD COUNT 7.8 10^3/uL (4.3-11.0)
[2021-03-27 16:55] LABS: POTASSIUM 4.1 MMOL/L (3.6-5.0)
[2021-03-27 16:55] LABS: BILIRUBIN,URINE NEGATIVE (NEGATIVE); CLARITY,URINE CLEAR; GLUCOSE, URINE (UA) NEGATIVE (NEGATIVE); KETONES,URINE NEGATIVE (NEGATIVE); LEUKOCYTE ESTERASE ,URINE NEGATIVE (NEGATIVE); NITRITE,URINE NEGATIVE (NEGATIVE); PROTEIN,URINE NEGATIVE (NEGATIVE)
[2021-03-27 16:56] LABS: CALCIUM 9.7 MG/DL (8.5-10.1)
[2021-03-27 16:58] LABS: TOTAL PROTEIN 7.4 GM/DL (6.4-8.2)
[2021-03-27 16:59] LABS: BILIRUBIN,TOTAL 0.3 MG/DL (0.1-1.0)
[2021-03-27 17:01] LABS: CREATININE SERUM 0.79 MG/DL (0.60-1.30)
[2021-03-27 17:33] LABS: BACTERIA,URINE NEGATIVE /HPF; COLOR,URINE YELLOW; RBC,URINE 0-2 /HPF; SQUAMOUS EPITHELIAL CELL,UR 0-2 /HPF; WBC,URINE 0-2 /HPF
[2021-03-27 18:36] VITALS: BP 124/73
[2021-03-28] MEDS ORDERED: LIDOCAINE 4% (SALONPAS) PATCH TOP SCH (09:00)
== END 2021-03-27 18:37 | disposition home or self-care (01) ==
LOC: EDUNIT# 13:52 → ER 13:55
DX: R42 Dizziness and giddiness (principal); G56.91 Unspecified mononeuropathy of right upper limb; I10 Essential (primary) hypertension; F41.9 Anxiety disorder, unspecified; F31.9 Bipolar disorder, unspecified; M79.7 Fibromyalgia; Z87.891 Personal history of nicotine dependence; Z79.82 Long term (current) use of aspirin; Z79.899 Other long term (current) drug therapy
CPT/HCPCS: 36415; 80053; 81000; 85025; 99282

== ENCOUNTER → 2021-05-03 | Outpatient (CLI) | payer MEDICARE, MEDICAID ==
--- NOTE | 2021-05-03 19:47 | Diagnostic Imaging Report ---
PROCEDURE: CT cervical spine without contrast. TECHNIQUE: Multiple contiguous axial images were obtained through the cervical spine without the use of intravenous contrast. Sagittal and coronal reformations were then performed. Auto Exposure Controls were utilized during the CT exam to meet ALARA standards for radiation dose reduction. INDICATION: 46-year-old female with cervical spine fusion 7 weeks prior to study continues to have neck pain. COMPARISONS: MRI cervical spine 12/20/2020. FINDINGS: The cervical vertebral bodies appear well aligned. Vertebral body has been reasonably well-maintained. There is interbody anterior cervical fusion at C5-C6. Cortical screw tracks from previous removal of fusion of C6 and C7 are noted. Cervical vertebral bodies otherwise appear reasonably well aligned and vertebral body heights appear reasonably well maintained. There is some uncovertebral osteophytes at C6-C7 on the left, possibly contributing to neuroforaminal compromise. Overall, there is no definite evidence of canal stenosis. There is no evidence of acute fracture or acute subluxation seen. The prevertebral soft tissue as well as the predental space in relationship to the dens and lateral mass of C1 is normal. The lung apices are clear. Superior mediastinum is unremarkable. Parapharyngeal and paraspinous soft tissues are also unremarkable IMPRESSION: 1. Anterior cervical interbody fusion of C5-C6 with no evidence of hardware failure. 2. There appears to be removal of 7 screws from the C6 and C7 vertebral bodies with the lucencies showing tract of the previous screws. 3. No evidence of acute fracture or acute subluxation. If symptoms warrant or persist, an MRI may be of further value. Dictated by: Dictated on workstation # [id number]
== END ==
LOC: RAD 17:22
PROVIDERS: ATTEND Physician Assistant
DX: M54.2 Cervicalgia (principal); Z98.0 Intestinal bypass and anastomosis status
CPT/HCPCS: 72125

== ENCOUNTER → 2021-07-12 | Outpatient (CLI) | payer MEDICARE, MEDICAID ==
--- NOTE | 2021-07-12 09:43 | Diagnostic Imaging Report ---
PROCEDURE: MR imaging cervical spine without contrast. TECHNIQUE: Multiplanar, multisequence MR imaging of the cervical spine was performed without contrast. INDICATION: Neck pain. Cervical spine fusion. COMPARISON: CT cervical spine without contrast 05/03/2021. FINDINGS: Minimal anterolisthesis of C7 on T1. Vertebral body heights are preserved. Stable anterior fusion at C5-C6. No suspicious bone marrow signal. No abnormal signal in the cervical spinal cord. Visualized paravertebral soft tissues are unremarkable. C2-C3: Normal. C3-C4: Facet arthropathy contributes to moderate right neural foraminal narrowing. No spinal canal narrowing. C4-C5: Normal. C5-C6: No spinal canal or neural foraminal narrowing. C6-C7: Osteophytic ridging results in moderate to severe left and moderate right neural foraminal narrowing. There is also mild spinal canal narrowing. C7-T1: Anterolisthesis contributes to mild bilateral neural foraminal narrowing. No spinal canal narrowing. IMPRESSION: 1. Postoperative findings from anterior fusion at C5-C6. The small metallic fragments and abandoned screw tract at C6-C7 are better demonstrated on the comparison CT. 2. No high-grade spinal canal stenosis. No abnormal signal in the cervical spinal cord. 3. Scattered high-grade neural foraminal narrowing including on the right at C3-C4 and bilaterally at C6-C7. Dictated by: Dictated on workstation # [id number]
== END ==
LOC: RAD 08:00
PROVIDERS: ATTEND Physician Assistant
DX: M48.02 Spinal stenosis, cervical region (principal); Z98.1 Arthrodesis status
CPT/HCPCS: 72141

== ENCOUNTER → 2022-01-11 | Outpatient (CLI) | payer MEDICARE, MEDICAID ==
[~2022-01-11] MED LIST changes: +GADOTERATE 0.5 MMOL/ML (CLARISCAN) 20 ML VIAL IV ONE
--- NOTE | 2022-01-11 12:42 | Diagnostic Imaging Report ---
PROCEDURE: MR imaging cervical spine with and without contrast. TECHNIQUE: Multiplanar and multisequence MRI of the cervical spine was performed with and without contrast. INDICATION: Increasing neck pain, previous spinal surgeries. The study compared with nonenhanced MR 07/12/2021. FINDINGS: Anterior and interbody fusion at C5-C6 again noted. There is straightening of cervical curvature however no listhesis across, above or below the fusion. Cervical spinal cord itself maintains a normal volume and normal morphology and a normal signal intensity. After contrast was administered, there was no abnormal enhancement. There were no findings to suggest MR evidence for cervical fracture, infection or neoplasm. There is no fluid collection. No acute epidural abnormality. At the C6-C7 level, there is disc space narrowing, disc desiccation, bulge and endplate osteophytes resulting in mild canal with mild to moderate left and mild right foraminal narrowing. This has not clearly changed. At C3-C4, there is mild right foraminal narrowing owing to uncovertebral joint spurring and facet arthrosis. This is also unchanged. No cord compression. No substantial canal stenosis. IMPRESSION: Stable lower cervical ACDF without apparent complication. Normal cord. No edema. No fluid collection. No acute-appearing pathology. Canal and foraminal stenoses below the fusion at C6-C7 and at the right foramen at C3-C4, unchanged. Dictated by: Dictated on workstation # [id number]
== END ==
LOC: RAD 09:10
PROVIDERS: ATTEND Nurse Practitioner Family
DX: M48.02 Spinal stenosis, cervical region (principal); R20.2 Paresthesia of skin; Z98.1 Arthrodesis status
CPT/HCPCS: 72156

== ENCOUNTER → 2022-09-02 | Outpatient (CLI) | payer MEDICARE, MEDICAID ==
[~2022-09-02] MED LIST changes: +GADOTERATE 0.5 MMOL/ML (CLARISCAN) 15 ML VIAL IV ONE; -GADOTERATE 0.5 MMOL/ML (CLARISCAN) 20 ML VIAL IV ONE
--- NOTE | 2022-09-02 16:03 | Diagnostic Imaging Report ---
PROCEDURE: MR imaging cervical spine with and without contrast. TECHNIQUE: Multiplanar and multisequence MRI of the cervical spine was performed with and without contrast. INDICATION: Neck pain. History of cervical spine surgery. COMPARISON: MRI cervical spine without contrast 07/12/2021. FINDINGS: Stable alignment including grade 1 anterolisthesis of C7 on T1. Vertebral body heights are preserved. Normal bone marrow signal without abnormal enhancement. Stable anterior fusion at C5-C6. No abnormal signal or enhancement in the cervical spinal cord. No acute findings in the visualized paravertebral soft tissues. C2-C3: No spinal canal or neural foraminal narrowing. C3-C4: No spinal canal or neural foraminal narrowing. The right neural foraminal narrowing described on the prior exam was artifactual. C4-C5: No spinal canal or neural foraminal narrowing. C5-C6: No spinal canal or neural foraminal narrowing. C6-C7: Osteophytic ridging results in severe left and moderate right neural foraminal narrowing, similar to the prior exam. Mild spinal canal narrowing. C7-T1: Anterolisthesis results in mild bilateral neural foraminal narrowing. No spinal canal narrowing. IMPRESSION: 1. Stable exam including postoperative findings of an anterior fusion at C5-C6. 2. No high-grade spinal canal stenosis. High-grade neural foraminal narrowing at C6-C7 is stable. 3. No abnormal signal or enhancement in the cervical spinal cord. Dictated by: Dictated on workstation # [id number]
== END ==
LOC: RAD 12:59
PROVIDERS: ATTEND Nurse Practitioner Family
DX: M48.02 Spinal stenosis, cervical region (principal); R20.2 Paresthesia of skin; Z98.1 Arthrodesis status
CPT/HCPCS: 72156